=== PATIENT | male | born 1980 | race Hispanic/Latino ===

== ENCOUNTER 2019-07-19 17:28 | Day surgery (SDC) | payer OTHER ==
[~2019-07-19 17:28] MED LIST: Lidocaine 1% PF 5 ML VIAL ONE; Ondansetron PF 4 MG/2 ML Vial ONE; PROPOFOL 200 MG/20 ML VIAL ONE
[2019-07-19] MEDS ORDERED: Bacitracin Zinc Ointment 30 gm TUBE ONE (18:26)
[2019-07-19] MEDS ORDERED: Bupivacaine PF 0.5% 30 ML VIAL ONE (18:26)
[2019-07-19] MEDS ORDERED: Sodium Chloride 0.9% 0 ML ONE (18:26)
[2019-07-19] MEDS ORDERED: Clindamycin/D5W 900 mg/50 ml Premix Bag ONE (18:39)
[2019-07-19] MEDS ORDERED: Sodium Chloride 0.9% 10 ML ONE (18:56)
[2019-07-19] MEDS ORDERED: Fentanyl 100 MCG/2 ML VIAL ONE ×2 (19:45→21:14)
[2019-07-19] MEDS ORDERED: Midazolam HCl 2 mg/2 ml Vial ONE (19:45)
[2019-07-19] MEDS ORDERED: Ketorolac Tromethamine 30 MG/ML VIAL ONE (21:14)
--- NOTE | 2019-07-19 22:26 | OP ---
DATE OF PROCEDURE: 07/19/2019 PREOPERATIVE DIAGNOSES: 1. Left index finger distal phalanx fracture. 2. Open distal phalanx fracture. 3. No gross contamination of wound 2.0 cm with nailbed. FINDINGS: 1. 4-part distal phalanx fracture with open distal 1/3 fracture. 2. No gross contamination. 3. Nail bed laceration 1 cm to 2 cm wound, proximal phalanx dorsal. PROCEDURES PERFORMED: 1. ORIF distal phalanx fracture. 2. Repair, 2.0 cm wound. 3. Repair of nail bed. 4. Debridement of wound. 5. Debridement of material associated with open fracture. INDICATIONS: Open fracture secondary to sledgehammer injury at work 1 day prior. Because of the open nature, obvious nail bed laceration, open fracture that did not have bone level debridement, debridement with indicated. DESCRIPTION OF PROCEDURE: After successful general endotracheal anesthesia, the patient had the limb prepped and draped. After identified time-out where the site, side and procedure matched the consent, we exsanguinated the limb and inflated tourniquet to 250 mmHg pressure. Prophylactic antibiotics were given as clindamycin. The patient then was injected with 15 mL of 0.5% Marcaine at the metacarpophalangeal joint level. We removed the nail. We then inspected a jagged laceration that was 2 mm , 2.5 mm bone separation with a piece of cortical bone angulated and rotated sitting in the middle of the nail bed gap. We then debrided this using the following techniques: 1. Excision technique. 2. Instrumentation was curette, [place], [place] blade followed by a rongeur and then we used a 2 L normal saline and Pulsavac pressure with antibiotics inside. 3. There was no gross contamination. 4. The level included bone and fracture. Once this was done, we rotated the triangular 5 mm long piece of bone back in its appropriate place, reduced the fracture and then repaired the laceration with 5-0 nylon. This really aligned the fracture as well as the nail bed with its jagged edges. We then placed two 0.035 K-wires crossing from distal to proximal on the fracture with near anatomic in frontal and sagittal plane with no fragmentation. We then repaired the nail bed using 6-0 chromic and we had already completed the laceration repair with 5-0 nylon. The nail along with Bacitracin and Adaptic placed on the eponychial fold, a bulky dressing applied underneath Bacitracin and 4x4s along with a Kerlix and a Coban 2 inch was given. The patient left the operating room without evidence of anesthetic or operative complications. Job ID: [id number]
--- NOTE | 2019-07-20 08:46 | RAD ---
2 FLUOROSCOPIC IMAGES OF LEFT INDEX FINGER: Date: 07/19/19 INDICATION: Interval fixation of left index finger fracture. FINDINGS: Since the comparison examination, there has been interval reduction and percutaneous pinning of the d istal tuft fracture of left index finger. Total fluoroscopic time was 22 seconds. Total exposure was 0.51 mGy*cm^2. IMPRESSION: As above. POS: BH
== END 2019-07-19 21:58 | disposition home or self-care (01) ==
LOC: SDC 17:28
PROVIDERS: ATTEND Orthopaedic Surgery Hand Surgery
PROC: 0HQQXZZ Repair Finger Nail, External Approach (ICD-10-PCS; principal; 2019-07-19)
PROC: 0PSV04Z Reposition Left Finger Phalanx with Internal Fixation Device, Open Approach (ICD-10-PCS; principal; 2019-07-19)
DX: S62.631A Displaced fracture of distal phalanx of left index finger, initial encounter for closed fracture (principal); I10 Essential (primary) hypertension; E78.5 Hyperlipidemia, unspecified; F17.200 Nicotine dependence, unspecified, uncomplicated; Z88.0 Allergy status to penicillin; Z88.2 Allergy status to sulfonamides
CPT/HCPCS: 76000; J1885; J2001; J2250; J2405; J2704; J3010; J3490; S0020